=== PATIENT | female | born 1930 | race Caucasian/White ===

== ENCOUNTER → 2017-04-02 | Outpatient (CLI) | payer MEDICARE ==
[~2017-04-02] MED LIST: ALBU.083IS IH; ALBU90OI61 INH; ASPI325; ASPI81CH PO; ASPI81EC PO; ATEN100; ATEN100 PO; Aciphex20 MG PO; BUME1 PO; CALCAVITDA PO; CALMAGZIN PO; CARV25 PO; CLOP75 PO; Coreg12.5 MG PO; ENOX80I SC; GLUCHON PO; GLUCOSAMINE &1 EACH PO; HYOS.375ER; HYOS0.375T PO; L-Lysine500 M1 PO; LAVAP17G PO; LYSINE; MECL25 PO; METF500 PO; NAPR220 PO; NAPR250; NIFEDICAL PO; NITR.4SL SL; NITR.4TPA SL; POTA10T PO; PSYL5.85P PO; RABE20; RABE20 PO; RALO60; RALO60 PO; RANI150 PO; SIMV40; SIMV80 PO; SYMAX PO; TRIAM/HCTZ PO; TRIHYD253A PO; Tylenol325 MG PO; WARF2.5 PO; WARF4 PO; [UNRECOGNIZED DRUG - OTHER]
[2017-04-03 13:57] LABS: Stool Occult Bld Immuno 1 Negative (NEGATIVE); Stool Occult Bld Immuno 2 Negative (NEGATIVE)
== END ==
LOC: LAB SHORT 13:27
PROVIDERS: Internal Medicine Gastroenterology
DX: K57.30 Diverticulosis of large intestine without perforation or abscess without bleeding (principal); Z86.010 Personal history of colon polyps
CPT/HCPCS: 82274

== ENCOUNTER → 2017-11-09 | Outpatient (CLI) | payer MEDICARE | END | disposition home or self-care (01) | LOC: PLD 15:12 → LAB SHORT 15:12 | DX: D48.5 Neoplasm of uncertain behavior of skin (principal) | CPT/HCPCS: 88305 ==